=== PATIENT | female | born 1965 | race Caucasian/White ===

== ENCOUNTER 2017-03-04 16:57 | Emergency (ER) | payer SELFPAY ==
[~2017-03-04 16:57] MED LIST: ALBUTEROL 0.5ML INH; ALBUTEROL MININEB NEB; ALBUTEROL0.83 MG/ML IH; ALBUTEROL17 G1 IH; ALBUTEROL17 GM; ALBUTEROL2.5 MG/0.5 INH; ALPRAZOLAM PO; BACTRIM DS TABL1 TA1 PO; ECOTRIN81 M1 PO; HUMIBID-LA600 MG PO; LEVAQUIN750 M1 PO; LIPITOR PO; LOPRESSOR PO; MEDROL DOSEPAK4 MG PO; METOPROLOL TAR25 MG PO; NICOTINE TRANSD21 MG EXT; NO MEDICATIONS; PREDNISONE1 MG; UNISOM25 MG PO
== END 2017-03-04 19:00 | disposition left against medical advice (07) ==
LOC: CED 16:57
DX: Z53.21 Procedure and treatment not carried out due to patient leaving prior to being seen by health care provider (principal)

== ENCOUNTER 2017-03-08 11:24 | Emergency (ER) | payer OTHER | END 2017-03-08 13:16 | disposition home or self-care (01) | LOC: CFTX 11:24 → CED 11:24 → CFTX 12:07 | DX: S41.152A Open bite of left upper arm, initial encounter (principal); S41.151A Open bite of right upper arm, initial encounter; S71.152A Open bite, left thigh, initial encounter; S71.151A Open bite, right thigh, initial encounter; I10 Essential (primary) hypertension; F41.9 Anxiety disorder, unspecified; F17.210 Nicotine dependence, cigarettes, uncomplicated; Z23 Encounter for immunization; W55.01XA Bitten by cat, initial encounter; Y92.410 Unspecified street and highway as the place of occurrence of the external cause | CPT/HCPCS: 90471; 90715; 96372; 99283; J0696 ==

== ENCOUNTER 2017-03-15 09:47 | Emergency (ER) | payer SELFPAY ==
--- NOTE | ~2017-03-15 | CR142 ---
[facility] Service of [facility] RADIOLOGY TEXT RESULTS PATIENT: ERICA KUNZ LOCATION: [facility] : 63 UNIT #: [id number] AGE: [address]: Francisca Goetz APRN SEX: F ORDER DR: [id number] [facility] [address] [place], [place] [address] [id number] MR#: [id number] Acc #: [id number] NAME: ERICA KUNZ : 1965 SEX: F STUDY DATE/TIME: 03/15/2017 10:55 UNIT: [facility] ROOM: STUDY DESCRIPTION: CR Hand Min 3 Views Rt Attending Physician: Francisca Goetz A.P.R.N. Ordering Physician: Ed Ochoa Hebert M.D. Primary Care Physician: No Primary Care Physician MEDICAL IMAGING REPORT This report is preliminary unless electronic signature is present EXAM Right hand series, 03/15/2017. HISTORY Puncture wound; attacked by cat 5 days ago. Treated 3 days ago. Started antibiotics today. Had hand swelling, pain, redness in hand, 3rd and 5th metacarpals, medial. FINDINGS AP, lateral, and oblique radiographs of the right hand are presented. No traumatic fracture or malalignment. The joint spaces are intact. No soft tissue defect, subcutaneous air, or radiodense foreign body is seen. There appears to be some soft tissue swelling, dorsal aspect of the hand. Correlate with exam. No subcutaneous air or radiodense foreign body. Dictated by... Josiah Campos M.D. THIS IS AN ELECTRONICALLY VERIFIED REPORT Josiah Campos M.D. at 03/16/2017 7:11 PM YOEL/adwoa TD: 03/15/2017 12:47 JOB #: [id number] MEDICAL IMAGING REPORT Page 1 of 1 COPY
== END 2017-03-15 12:05 | disposition home or self-care (01) ==
LOC: CFTX 09:47 → CED 09:47 → CFTX 10:28
DX: S60.511A Abrasion of right hand, initial encounter (principal); L03.113 Cellulitis of right upper limb; W55.03XA Scratched by cat, initial encounter; Y92.410 Unspecified street and highway as the place of occurrence of the external cause; F17.200 Nicotine dependence, unspecified, uncomplicated
CPT/HCPCS: 73130; 99283